=== PATIENT | female | born 1985 | race Caucasian/White ===

== ENCOUNTER 2018-09-30 05:10 | Day surgery (SDC) | payer OTHER ==
[2018-09-25 13:22] LABS: BASOPHILS 0.2 % (0-2); EOSINOPHILS 0.6 % (0-7); HEMATOCRIT 37.2 % (36.0-48.0); HEMOGLOBIN 12.9 g/dL (12-16); IMMATURE GRANULOCYTES 0.2 % (0-5); LYMPHOCYTES 35.5 % (15-50); MCH 30.8 pg (26.0-34.0); MCHC 34.7 g/dL (31.0-37.0); MCV 88.8 fL (80.0-100.0); MEAN PLATELET VOLUME 9.5 fL (7.4-10.4); MONOCYTES 6.2 % (2-11); NEUTROPHILS 57.3 % (40-80); PLATELET COUNT 208 10x3/uL (130-400); RBC 4.19 10x6/uL (4.00-5.40); RDW 12.7 % (11.5-14.5); WBC 5.2 10x3/uL (4.8-10.8)
[2018-09-25 13:31] LABS: HCG URINE NEGATIVE (NEGATIVE)
[2018-09-25 13:35] LABS: CALC OSMOLALITY 281 mosm/kg (275-300); CALCIUM 8.6 mg/dL (8.5-10.1); CARBON DIOXIDE 28.8 mmol/L (21.0-32.0); CHLORIDE - SERUM 106 mmol/L (98-107); CREATININE - SERUM 0.7 mg/dL (0.6-1.3); GLUCOSE 96 mg/dL (74-106); POTASSIUM - SERUM 4.1 mmol/L (3.5-5.1); SODIUM 142 mmol/L (136-145); UREA NITROGEN 10 mg/dL (7-18); eGFR NON AFRICAN AMERICAN > 90 mL/min (90-120)
[~2018-09-30] VITALS: Ht 175.3 cm; Wt 108.9 kg
[~2018-09-30 05:10] MED LIST: PRENATAL COMPLE1 TAB PO
[2018-09-30 05:49] VITALS: BP 119/75; Ht 175.3 cm; Wt 108.9 kg
[2018-09-30 06:00] LABS: HCG URINE NEGATIVE (NEGATIVE)
== END 2018-09-30 10:30 | disposition home or self-care (01) ==
LOC: D.OPS 05:10 → D.PAN 07:30 → D.OPS 07:30
PROVIDERS: Obstetrics & Gynecology
DX: Z30.2 Encounter for sterilization (principal); N83.202 Unspecified ovarian cyst, left side; N83.201 Unspecified ovarian cyst, right side; Z01.812 Encounter for preprocedural laboratory examination